=== PATIENT | male | born 1970 | race American Indian/Alaskan Native ===

== ENCOUNTER 2021-04-04 17:20 | Emergency (ER) | payer OTHER ==
[2021-04-04] MEDS ORDERED: HYDROcodone/ACETAMINOPHEN 5-325 MG TAB PO ONE (20:23)
[2021-04-04] MEDS ORDERED: dexAMETHasone 20 MG/5 ML VIAL IM ONE (20:23)
[2021-04-04] MEDS ORDERED: KETOROLAC 60 MG/2 ML INJ IM ONE (20:24)
--- NOTE | 2021-04-04 20:45 | Emergency Department Report ---
ED Back Pain/Injury HPI - General Chief Complaint: Back Pain/Injury Stated Complaint: LO BACK PAIN RT ANKLE PAIN Time Seen by Provider: 04/04/21 20:23 Source: patient Limitations: No Limitations - History of Present Illness Initial Comments: Patient is a 50-year-old male presents emergency room with complaints of low back pain that exacerbated over the last month. He states that the pain occasionally radiates down his bilateral lower extremities and he has occasional tingling. He denies any complete numbness. He states he has had intermittent chronic back pain after he reports he injured himself in the . He states that he has a history of a bulging disc at L4-L5. He has not seen his primary care doctor or an orthopedic doctor since his pain is exacerbated over the last month. He states he has been taking baclofen and gabapentin and ketorolac for his pain. He denies any fever, nausea, vomiting, diarrhea, urinary symptoms, urinary retention, saddle numbness, extremity weakness. He is currently ambulatory. He denies any history of cancer, steroid use, IV drug use. He has an allergy to naproxen. - Related Data Previous Rx's Medication Instructions Recorded Last Taken Type Menthol/Camphor [[place] 1 applicatio TP BID #18 oint...g. 04/04/21 Unknown Rx Ointment] Prednisone [predniSONE 10 mg 10 mg PO .TAPER #1 tab.ds.pk 04/04/21 Unknown Rx (6-Day Pack, 21 Tabs)] traMADoL [Ultram 50 MG tab] 50 mg PO Q6HR PRN #14 tablet 04/04/21 Unknown Rx Allergies Allergy/AdvReac Type Severity Reaction Status Date / Time naproxen Allergy Unknown Verified 04/04/21 19:29 ED Review of Systems ROS: Stated complaint: LO BACK PAIN RT ANKLE PAIN Other details as noted in HPI Comment: All other systems reviewed and negative ED Past Medical Hx - Medications Home Medications: Home Medications Medication Instructions Recorded Confirmed Last Taken Type Menthol/Camphor [[place] 1 applicatio TP BID #18 oint...g. 04/04/21 Unknown Rx Ointment] Prednisone [predniSONE 10 mg 10 mg PO .TAPER #1 tab.ds.pk 04/04/21 Unknown Rx (6-Day Pack, 21 Tabs)] traMADoL [Ultram 50 MG tab] 50 mg PO Q6HR PRN #14 tablet 04/04/21 Unknown Rx ED Physical Exam - General Limitations: No Limitations General appearance: alert, in no apparent distress - Head Head exam: Present: atraumatic, normocephalic - Eye Eye exam: Present: normal appearance - ENT ENT exam: Present: mucous membranes moist - Respiratory Respiratory exam: Present: normal lung sounds bilaterally. Absent: respiratory distress, wheezes, rales, rhonchi, stridor, chest wall tenderness, accessory muscle use, decreased breath sounds, prolonged expiratory - Cardiovascular Cardiovascular Exam: Present: regular rate, normal rhythm, normal heart sounds. Absent: systolic murmur, diastolic murmur, rubs, gallop - Back Exam Back exam: Present: normal inspection, full ROM, paraspinal tenderness (bilateral lumbar), vertebral tenderness (mild lumbar, no step offs, no deformities, no edema, no skin changes ) - Neurological Exam Neurological exam: Present: alert, oriented X3, CN II-XII intact, normal gait. Absent: motor sensory deficit, reflexes normal - Psychiatric Psychiatric exam: Present: normal affect, normal mood - Skin Skin exam: Present: warm, dry, intact ED Course Vital Signs 04/04/21 04/04/21 19:29 21:13 Temperature 98.1 F Pulse Rate 100 H 88 Respiratory 18 17 Rate Blood Pressure 178/83 Blood Pressure 139/70 [Right] O2 Sat by Pulse 99 98 Oximetry ED Medical Decision Making - Lab Data Vital Signs 04/04/21 04/04/21 19:29 21:13 Temperature 98.1 F Pulse Rate 100 H 88 Respiratory 18 17 Rate Blood Pressure 178/83 Blood Pressure 139/70 [Right] O2 Sat by Pulse 99 98 Oximetry - Medical Decision Making Patient is a 50-year-old male presents emergency room with complaints of low back pain that exacerbated over the last month. He states that the pain occasionally radiates down his bilateral lower extremities and he has occasional tingling. He denies any complete numbness. He states he has had intermittent chronic back pain after he reports he injured himself in the . He states that he has a history of a bulging disc at L4-L5. He has not seen his primary care doctor or an orthopedic doctor since his pain is exacerbated over the last month. He states he has been taking baclofen and gabapentin and ketorolac for his pain. He denies any fever, nausea, vomiting, diarrhea, urinary symptoms, urinary retention, saddle numbness, extremity weakness. He is currently ambulatory. He denies any history of cancer, steroid use, IV drug use. He has an allergy to naproxen. Patient states that he does have a history of diabetes. Reports that his sugar is well controlled and runs between 100- 140. Initially vitals with elevated blood pressure which improved upon repeat. Otherwise vitals are stable. On exam patient has bilateral lumbar and mild midline lumbar tenderness outpatient, no step-offs, no deformities, no focal neuro deficits, ambulatory without difficulty. Patient symptoms appear likely consistent with lumbar radiculopathy. Patient has had no acute trauma. He states his symptoms have been ongoing for a month. Patient has no red flag warning signs of back pain, no trauma, no unexplained weight loss, no fever, no IV drug use, no steroid use, no history of cancer, no neuro deficits. pt given medications in the emergency department with improvement of his symptoms as he did not drive. Patient given prescription for medication. Advised patient Please use medication as prescribed. Prednisone may increase your sugar, if it is increasing greater than 250 please stop taking prednisone. May use ice pack, heating pad, rest, of salt bath. Follow-up with a primary care doctor. Follow-up with a neurosurgeon. Return to emergency room for any new or worsening symptoms. Critical care attestation.: If time is entered above; I have spent that time in minutes in the direct care of this critically ill patient, excluding procedure time. ED Disposition Clinical Impression: Lumbar radiculopathy Low back pain Qualifiers: Chronicity: acute Back pain laterality: bilateral Sciatica presence: with sciatica Sciatica laterality: bilateral sciatica Qualified Code(s): M54.42 - Lumbago with sciatica, left side Disposition: 01 HOME / SELF CARE / HOMELESS Is pt being admited?: No Does the pt Need Aspirin: No Condition: Stable Instructions: Radicular Pain, Herniated Disk, [id number] Additional Instructions: Please use medication as prescribed. Prednisone may increase your sugar, if it is increasing greater than 250 please stop taking prednisone. May use ice pack, heating pad, rest, of salt bath. Follow-up with a primary care doctor. Follow-up with a neurosurgeon. Return to emergency room for any new or worsening symptoms. Prescriptions: Prednisone [predniSONE 10 mg (6-Day Pack, 21 Tabs)] 10 mg PO .TAPER #1 tab.ds.pk Menthol/Camphor [[place] Ointment] 1 applicatio TP BID #18 oint...g. traMADoL [Ultram 50 MG tab] 50 mg PO Q6HR PRN #14 tablet PRN Reason: Pain , Severe (7-10) Referrals: CONNOR LARA II, MD [Staff Physician] - 2-3 Days your, primary care doctor [Other] - 2-3 Days Time of Disposition: 20:43 Print Language: CZECH
[2021-04-04 21:35] VITALS: BP 139/70
== END 2021-04-04 21:13 | disposition home or self-care (01) ==
LOC: ED 17:20
DX: M54.16 Radiculopathy, lumbar region (principal); M54.5 Low back pain
CPT/HCPCS: 96372; 99282; J1885

== ENCOUNTER 2021-05-13 14:03 | Emergency (ER) | payer OTHER ==
[2021-05-13 14:11] VITALS: BP 153/84
--- NOTE | 2021-05-13 16:53 | Emergency Department Report ---
ED Back Pain/Injury HPI - General Chief Complaint: Back Pain/Injury Stated Complaint: BACK PAIN Source: patient Limitations: No Limitations - History of Present Illness Initial Comments: The patient was evaluated in the emergency department for symptoms described in the history of present illness. He/she was evaluated in the context of the global COVID-19 pandemic, which necessitated consideration that the patient might be at risk for infection with the virus that causes COVID-19. Institutional protocols and algorithms that pertain to the evaluation of patients at risk for COVID-19 are in a state of rapid change based on information released by regulatory bodies including the CDC and federal and state organizations. These policies and algorithms were followed during the patient's care in the emergency department. Please note that these policies, procedures and recommendations changed on a rapid basis. 50-year-old -Turkish male with a history of chronic back pain recently seen in March for the same complaints presents for lower back pain for 4 days. Patient states that he takes gabapentin baclofen . Patient denies any recent trauma denies any fever no history of cancer or steroid use. Patient denies any unintentional weight loss. He states he has a history of herniated disks L4-L5. He states walking makes it worse nothing makes it better. Patient denies any surgery to his back. He does admit to a past medical history of sleep apnea diabetes and GERD. He states he has been using his chronic pain medicine ice and heat as well as pain patches. States his next appointment to his primary care provider is June 11. Last saw his doctor 10 months ago. Complaint: back pain - Related Data Previous Rx's Medication Instructions Recorded Last Taken Type Menthol/Camphor [[place] 1 applicatio TP BID #18 oint...g. 04/04/21 Unknown Rx Ointment] Prednisone [predniSONE 10 mg 10 mg PO .TAPER #1 tab.ds.pk 04/04/21 Unknown Rx (6-Day Pack, 21 Tabs)] traMADoL [Ultram 50 MG tab] 50 mg PO Q6HR PRN #14 tablet 05/13/21 Unknown Rx Allergies Allergy/AdvReac Type Severity Reaction Status Date / Time naproxen Allergy Unknown Verified 05/13/21 14:04 ED Review of Systems ROS: Stated complaint: BACK PAIN Other details as noted in HPI ED Past Medical Hx - Past Medical History Hx Diabetes: Yes Hx GERD: Yes Additional medical history: SLEEP APNEA - Surgical History Additional Surgical History: LEFT FOOT/ 3 KNEE LEFT/ 2 RIGHT KNEE/ RIGHT SHOULDER 3/ LEFT SHOULDER/TONSILS - Medications Home Medications: Home Medications Medication Instructions Recorded Confirmed Last Taken Type Menthol/Camphor [[place] 1 applicatio TP BID #18 oint...g. 04/04/21 Unknown Rx Ointment] Prednisone [predniSONE 10 mg 10 mg PO .TAPER #1 tab.ds.pk 04/04/21 Unknown Rx (6-Day Pack, 21 Tabs)] traMADoL [Ultram 50 MG tab] 50 mg PO Q6HR PRN #14 tablet 05/13/21 Unknown Rx ED Physical Exam - General Limitations: No Limitations General appearance: alert, in no apparent distress - Head Head exam: Present: atraumatic, normocephalic - Eye Eye exam: Present: normal appearance - ENT ENT exam: Present: mucous membranes moist, normal external ear exam - Neck Neck exam: Present: normal inspection, full ROM - Respiratory Respiratory exam: Present: normal lung sounds bilaterally. Absent: chest wall tenderness, accessory muscle use - Cardiovascular Cardiovascular Exam: Present: regular rate, normal rhythm. Absent: systolic murmur, diastolic murmur, rubs, gallop - Extremities Exam Extremities exam: Present: full ROM. Absent: pedal edema - Expanded Lower Extremity Exam Right Hip exam: Present: full ROM Upper Leg exam: Present: normal inspection, full ROM Knee exam: Present: full ROM Lower Leg exam: Present: normal inspection, full ROM Foot/Toe exam: Present: normal inspection, full ROM Neuro vascular tendon exam: Present: no vascular compromise Gait: Positive: observed and normal - Back Exam Back exam: Present: full ROM, muscle spasm, paraspinal tenderness, vertebral tenderness. Absent: rash noted - Neurological Exam Neurological exam: Present: alert, oriented X3 - Psychiatric Psychiatric exam: Present: normal affect, normal mood - Skin Skin exam: Present: warm, dry, intact, normal color. Absent: rash ED Course Vital Signs 05/13/21 14:09 Temperature 98.5 F Pulse Rate 87 Blood Pressure 153/84 O2 Sat by Pulse 98 Oximetry ED Medical Decision Making - Radiology Data Radiology results: report reviewed [facility] [address] [place] [address] XRay Report Signed Patient: NEENA ÓLPEZ MR#: [id number] : 1970 Acct:[id number] Age/Sex: 50 / M ADM Date: 05/13/21 Loc: ED Attending Dr: Ordering Physician: HELEN DUCKWORTH Date of Service: 05/13/21 Procedure(s): XR spine lumbosacral 2-3V Accession Number(s): [id number] cc: HELEN DUCKWORTH Fluoro Time In Minutes: XR spine lumbosacral 2-3V HISTORY: lbp COMPARISON: None. TECHNIQUE: 3 view(s) of the lumbar spine obtained. FINDINGS: Vertebrae: Normal alignment. Vertebral body heights are preserved. Spondylosis:Disc space heights are preserved. IMPRESSION: 1. No significant abnormality of the lumbar spine. Signer Name: Reji Badillo MD Signed: 05/13/2021 5:07 PM Workstation Name: [id number] Transcribed By: CS Dictated By: Reji Badillo MD Electronically Authenticated By: Reji Badillo MD Signed Date/Time: 05/13/211706 DD/ 06 TD/TT: Print Cancel - Medical Decision Making 50-year-old -Turkish male with a history of chronic back pain recently seen in March for the same complaints presents for lower back pain for 4 days. Patient states that he takes gabapentin baclofen . Patient denies any recent trauma denies any fever no history of cancer or steroid use. Patient denies any unintentional weight loss. He states he has a history of herniated disks L4-L5. He states walking makes it worse nothing makes it better. Patient denies any surgery to his back. He does admit to a past medical history of sleep apnea diabetes and GERD. He states he has been using his chronic pain medicine ice and heat as well as pain patches. States his next appointment to his primary care provider is June 11. Last saw his doctor 10 months ago. X-ray of back has been ordered. Critical care attestation.: If time is entered above; I have spent that time in minutes in the direct care of this critically ill patient, excluding procedure time. ED Disposition Clinical Impression: Chronic back pain greater than 3 months duration Disposition: HOME / SELF CARE / HOMELESS Is pt being admited?: No Does the pt Need Aspirin: No Condition: Stable Instructions: Chronic Back Pain, [id number] Additional Instructions: Plain film x-rays show no acute abnormalities. You need to follow-up with a pain management provider and your primary care provider I have listed information below for your convenience. Prescriptions: traMADoL [Ultram 50 MG tab] 50 mg PO Q6HR PRN #14 tablet PRN Reason: Pain , Severe (7-10) Referrals: [facility] [Other] - 3-5 Days [facility], [facility] [Provider Group] - 3-5 Days [facility] [Provider Group] - 3-5 Days Time of Disposition: 18:36
--- NOTE | 2021-05-13 17:12 | XRay Report ---
XR spine lumbosacral 2-3V HISTORY: lbp COMPARISON: None. TECHNIQUE: 3 view(s) of the lumbar spine obtained. FINDINGS: Vertebrae: Normal alignment. Vertebral body heights are preserved. Spondylosis:Disc space heights are preserved. IMPRESSION: 1. No significant abnormality of the lumbar spine. Signer Name: Reji Badillo MD Signed: 05/13/2021 5:07 PM Workstation Name: [id number]
[2021-05-13] MEDS ORDERED: traMADol 50 MG TAB PO ONE (18:14)
== END 2021-05-13 18:41 | disposition home or self-care (01) ==
LOC: ED 14:03
DX: M54.59 Other low back pain (principal); G89.29 Other chronic pain; E11.8 Type 2 diabetes mellitus with unspecified complications; K21.9 Gastro-esophageal reflux disease without esophagitis; G47.30 Sleep apnea, unspecified; Z98.890 Other specified postprocedural states; Z88.6 Allergy status to analgesic agent
CPT/HCPCS: 72100; 99283